=== PATIENT | female | born 1995 | race Two or more races ===

== ENCOUNTER 2024-12-24 13:28 | Inpatient (IN) | payer OTHER ==
[2024-12-24 14:17] VITALS: BMI 28.0
[2024-12-24] MEDS ORDERED: ONDANSETRON *ODT* 4 MG TABLET SL PRN (14:40)
[2024-12-24] MEDS ORDERED: IBUPROFEN 600 MG TABLET (FP) PO PRN (14:40)
[2024-12-24] MEDS ORDERED: BENZONATATE 200 MG CAPSULE PO PRN (14:40)
[2024-12-24] MEDS ORDERED: BISMUTH SUBSALICYLATE 262 MG/15 ML BTL PO PRN (14:40)
[2024-12-24] MEDS ORDERED: IBUPROFEN 400 MG TABLET (FP) PO PRN (14:40)
[2024-12-24] MEDS ORDERED: LOPERAMIDE HCL 2 MG CAPSULE PO PRN (14:40)
[2024-12-24] MEDS ORDERED: MAG HYDROX/AL HYDROX/SIMETH 30 ML UNIT-DOSE CUP PO PRN (14:40)
[2024-12-24] MEDS ORDERED: MAGNESIUM HYDROX 2400MG/30ML ORAL SUSPENSION 30 ML CUP PO PRN (14:40)
[2024-12-24] MEDS ORDERED: ACETAMINOPHEN 325 MG TABLET (FP) PO PRN (14:40)
[2024-12-24] MEDS ORDERED: DICYCLOMINE HCL 10 MG CAPSULE PO PRN (14:40)
[2024-12-24] MEDS ORDERED: guaiFENesin 600 MG TABLET.ER (FP) PO PRN (14:40)
[2024-12-24] MEDS ORDERED: BENZOCAINE/MENTHOL (CHLORASEPTIC ) LOZENGE MM PRN (14:40)
[2024-12-24] MEDS ORDERED: NALOXONE (NARCAN) HCL 4 MG/0.1 ML SPRAY NS PRN (14:40)
[2024-12-24] MEDS ORDERED: POLYETHYLENE GLYCOL (HEALTHYLAX) 3350 17 GM PACKET PO PRN (14:40)
[2024-12-24] MEDS ORDERED: chlordiazePOXIDE HCL 25 MG CAPSULE ONE (15:17)
[2024-12-24] MEDS ORDERED: propRANOLol HCL 10 MG TABLET ONE (15:18)
[2024-12-24] MEDS: propRANOLol HCL 10 MG TABLET PO ONE ×2 (15:19→19:57)
[2024-12-24] MEDS: chlordiazePOXIDE HCL 25 MG CAPSULE PO ONE (15:19)
[2024-12-24] MEDS: chlordiazePOXIDE HCL 25 MG CAPSULE PO SCH (17:35)
[2024-12-24] MEDS: chlordiazePOXIDE HCL 25 MG CAPSULE PO PRN (20:00)
[2024-12-24] MEDS: MELATONIN 5 MG TABLETS PO SCH (22:28)
[2024-12-24] MEDS: METHOCARBAMOL 500 MG TABLET PO PRN (22:28)
[2024-12-24] MEDS: THIAMINE 100 MG TABLET PO SCH (22:28)
[2024-12-25] MEDS: PRENATAL VITAMINS W/ FOLIC ACID TABLET (FP) PO SCH (10:19)
[2024-12-25 11:46] LABS: CHLORIDE 102 mmol/L (98-107); POTASSIUM 3.9 mmol/L (3.5-5.1); SODIUM 140 mmol/L (136-145)
[2024-12-25 11:59] LABS: ANION GAP 7 mmol/L (4-13); BLOOD UREA NITROGEN 6.7 mg/dL (7-18); CALCIUM 8.8 mg/dL (8.5-10.1); CO2 31 mmol/L (21-32); GLUCOSE,RANDOM 89 mg/dL (74-106)
[2024-12-25 12:02] LABS: CREATININE 0.5 mg/dL (0.55-1.3); SGOT/AST 35 U/L (15-37)
[2024-12-25 12:03] LABS: SGPT/ALT 19 U/L (13-61)
[2024-12-25 12:04] LABS: BILIRUBIN,TOTAL 0.8 mg/dL (0.2-1)
[2024-12-25 12:05] LABS: ALK PHOS 92 U/L (45-117)
[2024-12-25] MEDS: risperiDONE 0.5 MG TABLET PO SCH (12:11)
[2024-12-25] MEDS: lamoTRIgine 25 MG TABLET PO SCH (12:11)
[2024-12-25 13:21] LABS: HEMATOCRIT 37.4 % (34.1-44.9); HEMOGLOBIN 12.1 g/dL (11.2-15.7); MCHC 32.4 g/dl (32.2-35.5); MEAN CELL VOLUME 102.7 fl (79.4-94.8); MEAN PLT VOLUME 9.5 fl (9.4-12.3); PLATELET COUNT # 190 x10^3/uL (182-369)
[2024-12-25] MEDS: SUVOREXANT 10 MG TABLET PO PRN (22:05)
[2024-12-26] MEDS: chlordiazePOXIDE HCL 25 MG CAPSULE PO SCH (05:26)
[2024-12-26] MEDS: hydrOXYzine PAMOATE 25 MG CAPSULE (FP) PO PRN (07:20)
[2024-12-27] MEDS ORDERED: chlordiazePOXIDE HCL 10 MG CAPSULE PO PRN
[2024-12-27] MEDS: chlordiazePOXIDE HCL 10 MG CAPSULE PO SCH (05:50)
[2024-12-27 12:56] VITALS: BP 129/95; PULSE 111; RESP 18; TEMP 96.9
[2024-12-28] MEDS ORDERED: chlordiazePOXIDE HCL 10 MG CAPSULE PO SCH (05:00)
[2024-12-29] MEDS ORDERED: chlordiazePOXIDE HCL 10 MG CAPSULE PO ONE (05:00)
== END 2024-12-27 13:35 | disposition left against medical advice (07) | DRG 770 ==
LOC: YASAS 13:28 → Y6N 15:12
PROVIDERS: ADMIT Allergy & Immunology; ATTEND Allergy & Immunology
PROC: HZ2ZZZZ Detoxification Services for Substance Abuse Treatment (ICD-10-PCS; principal; 2024-12-24)
DX: F10.230 Alcohol dependence with withdrawal, uncomplicated (principal); F31.9 Bipolar disorder, unspecified; I10 Essential (primary) hypertension
CPT/HCPCS: 36415; 80053; 80305; 80307; 85027; 86780; 93005; 93010